=== PATIENT | male | born 1990 | race Caucasian/White ===

== ENCOUNTER 2024-08-01 10:27 | Emergency (ER) | payer OTHER, SELFPAY ==
[2024-08-01] VITALS (16 sets, daily range): BP systolic 115–141; BP diastolic 74–102; BMI 36.7
--- NOTE | 2024-08-01 10:48 | ED.GENMED ---
History of Present Illness
<JOSE Bustillos - Last Filed: 08/01/24 14:12>
General
Chief Complaint: Heart Rate Problem
Source: patient
Exam Limitations: none
Time Seen by Provider: 08/01/24 10:42
Nursing documentation reviewed up to this point in time: agreed with
History of Present Illness
History of Present Illness:
34-year-old male presents today for evaluation. Patient has a history of very intermittent A-fib. He had an episode at age 19 and believes he took Cardizem as needed and then his last episode was 9 years ago at age 25. This morning he got up
today and felt short of breath and felt like his heart was racing and irregular. He went to his family doctor's office found to be in A-fib and sent to the ER. He presently feels it very mildly.
He quit smoking 1 year ago he quit vaping 2 months ago. He denies any caffeine intake. He denies any onbv-gew-qdpftpe cough cold medicines.
Review of Systems
<JOSE Bustillos - Last Filed: 08/01/24 14:12>
Review of Systems
Allergies reviewed?: Yes
All Other Systems: ROS reviewed and negative except as documented in HPI and ROS
Constitutional: Reports no symptoms
Respiratory: Reports trouble breathing
Cardiac: Reports other (rapid heart rate sensation ); Denies chest pain, palpitations or syncope
ABD/GI: Reports no symptoms; Denies abdominal pain, nausea or vomiting
: Reports no symptoms
Musculoskeletal: Reports no symptoms
Skin: Reports no symptoms
Neurological: Reports no symptoms
Psychiatric: Reports no symptoms
Phy Exam
<JOSE Bustillos - Last Filed: 08/01/24 14:12>
General Physical Exam
General Presentation: no apparent distress
General age: appears stated age
General Skin: warm and dry
General Habitus: normal
General Mental: alert
General Hydration: appears well hydrated
Scores
<JOSE Bustillos - Last Filed: 08/01/24 14:12>
[id number] Score for Afib Stroke Risk
Age in Years (65=0, 65-74=1, >/=75=2): <65
Sex (Female=+1): Male
Congestive Heart Failure History (Yes=+1): No
Hypertension History (Yes=+1): No
Stroke/TIA/Thromboembolism History (Yes=+2): No
Vascular Disease History (Yes=+1): No
Diabetes Mellitus (Yes=+1): No
Score: 0
Anticoagulation Recommendations: Anticoagulation not indicated (as validated in nonvalvular afib). Consider anticoagulation irrespective of score in patients with HCM
<Joon Ballard MD - Last Filed: 08/01/24 14:58>
[id number] Score for Afib Stroke Risk
Score: 0
Anticoagulation Recommendations: Anticoagulation not indicated (as validated in nonvalvular afib). Consider anticoagulation irrespective of score in patients with HCM
Course
<JOSE Bustillos - Last Filed: 08/01/24 14:12>
Orders/Labs/Results
Orders:
Orders
08/01/24 10:28
EKG [Electrocardiogram (*1)] Urgent
Reason for Study: Atrial Fibrillation
EKG- Treatment ONCE
08/01/24 10:56
Complete Blood Count/With Diff Urgent
Comprehensive Metabolic Panel Urgent
TSH Reflex To Free T4 Urgent
08/01/24 10:58
Cardiac Monitoring- Treatment ONCE
IV Insert/Care/Rem.- Treatment PRN
0.9% Sodium Chloride 1000 ml [Nss] 1,000 ml IV BOLUS
08/01/24 11:46
Diltiazem HCl [Cardizem] 10 mg IV NOW STA
08/01/24 12:00
Diltiazem 125 mg/125 ml Nss [Cardizem] 125 mg in 125 ml IV PER PROTOCOL
Initial dose in mg/hr, then titrate:: 5
Titrate to keep:: Heart rate 80-100 bpm
Titrate by mg/hr:: 5 mg/hr
Frequency of titrations (minutes):: 15
Maximum dose in mg/hr:: 15
08/01/24 13:35
Propofol [Diprivan] 20 ml .ROUTE .STK-MED
08/01/24 13:54
Electrocardiogram (*1) Urgent
Reason for Study: Other
Other Reason for Exam: post cardioversion
08/01/24 13:55
EKG- Treatment ONCE
08/01/24 14:05
Rivaroxaban [Xarelto] 20 mg PO NOW STA
Abnormal Lab Results
08/01/24
10:56
Absolute Monos (auto) 0.7 H 10^3/uL
(0.1-0.6)
Calcium 10.5 H mg/dl
(8.4-10.2)
08/01/24 10:56
08/01/24 10:56
Vital Signs
Initial and Last Documented VS:
Initial Vital Signs
Temp Pulse Resp BP Pulse Ox
36.9 C 87 18 141/100 97
08/01/24 10:37 08/01/24 10:37 08/01/24 10:37 08/01/24 10:37 08/01/24 10:37
Last Documented Vital Signs
Temp Pulse Resp BP Pulse Ox
36.6 C 77 16 124/79 97
08/01/24 14:25 08/01/24 14:25 08/01/24 14:25 08/01/24 14:25 08/01/24 14:25
Hotel Valet Attendant consulted with Physician
Hotel Valet Attendant consulted with physician?: Yes
Name of Physician Consulted: Dr Ballard
<Joon Ballard MD - Last Filed: 08/01/24 14:58>
Orders/Labs/Results
Orders:
Orders
08/01/24 10:28
EKG [Electrocardiogram (*1)] Urgent
Reason for Study: Atrial Fibrillation
EKG- Treatment ONCE
08/01/24 10:56
Complete Blood Count/With Diff Urgent
Comprehensive Metabolic Panel Urgent
TSH Reflex To Free T4 Urgent
08/01/24 10:58
Cardiac Monitoring- Treatment ONCE
IV Insert/Care/Rem.- Treatment PRN
0.9% Sodium Chloride 1000 ml [Nss] 1,000 ml IV BOLUS
08/01/24 11:46
Diltiazem HCl [Cardizem] 10 mg IV NOW STA
08/01/24 12:00
Diltiazem 125 mg/125 ml Nss [Cardizem] 125 mg in 125 ml IV PER PROTOCOL
Initial dose in mg/hr, then titrate:: 5
Titrate to keep:: Heart rate 80-100 bpm
Titrate by mg/hr:: 5 mg/hr
Frequency of titrations (minutes):: 15
Maximum dose in mg/hr:: 15
08/01/24 13:35
Propofol [Diprivan] 20 ml .ROUTE .STK-MED
08/01/24 13:54
Electrocardiogram (*1) Urgent
Reason for Study: Other
Other Reason for Exam: post cardioversion
08/01/24 13:55
EKG- Treatment ONCE
08/01/24 14:05
Rivaroxaban [Xarelto] 20 mg PO NOW STA
Abnormal Lab Results
08/01/24
10:56
Absolute Monos (auto) 0.7 H 10^3/uL
(0.1-0.6)
Calcium 10.5 H mg/dl
(8.4-10.2)
08/01/24 10:56
08/01/24 10:56
Vital Signs
Initial and Last Documented VS:
Initial Vital Signs
Temp Pulse Resp BP Pulse Ox
36.9 C 87 18 141/100 97
08/01/24 10:37 08/01/24 10:37 08/01/24 10:37 08/01/24 10:37 08/01/24 10:37
Last Documented Vital Signs
Temp Pulse Resp BP Pulse Ox
36.6 C 77 16 124/79 97
08/01/24 14:25 08/01/24 14:25 08/01/24 14:25 08/01/24 14:25 08/01/24 14:25
Procedures
<JOSE Bustillos - Last Filed: 08/01/24 14:12>
Moderate Sedation
ASA Risk Score: Class I
Chart and allergies reviewed: Yes
Consent for anesthesia obtained: Yes
Time out completed (validating right patient & procedure): Yes
Moderate Sedation Start Time(when first medication is given): 13:47
History of difficult intubation: No
Airway free of obstruction: Yes
Patient has a gag reflex: Yes
Patient is able to open mouth: Yes
Patient has no dentures: Yes
Patient has no loose teeth: Yes
Medication administered by Provider during Moderate Sedation: IV Propofol (mg)
Total dose administered: 100
Time drug administered: 13:47
Moderate Sedation Procedure End Time: 13:59
<JOSE Bustillos - Last Filed: 08/01/24 14:12>
MDM/Problems Addressed
Differential Diagnosis Includes:
not limited to: atrial fibrillalation
MDM/Problems Addressed:
Patient is document is a 34-year-old male with several episodes of A-fib in his past 1 at age 19 and 1 9 years ago. He no longer follows with cardiology. He did see cardiology at [place] but wishes to come here instead. He felt fine yesterday
but this morning around 8 AM felt short of breath and felt like his heart was racing and irregular and he felt like this was A-fib. He did present in rapid A-fib in the 140s. He is in no acute distress. He denies any new rpud-exv-kbhelzu
medicines. He does not drink caffeine. Thyroid is currently pending labs unremarkable. Case reviewed with ED physician and DR Kingsley of cardiology will attempt to give Cardizem first and then reevaluate.
Patient was monitored here received Cardizem bolus and drip however continues to be in A-fib. He has no acute distress. As discussed with Dr. Kingsley ,since patient's onset of time was 8 AM stale for cardioversion.
Patient tolerated cardioversion well. As discussed with cardiology will DC on Xarelto and Toprol with close outpatient follow-up. As discussed with cardiology will DC on Xarelto 20 mg daily and Toprol XL 12.5 mg daily . office will reach out to pt
Chronic conditions affecting care:
afib
<JOSE Bustillos - Last Filed: 08/01/24 14:12>
*Pulse Oximetry
Patient hypoxic: no
*EKG
Interpreted by ED Provider?: Yes
Heart Rate: 164
Rate: tachycardiac
Rhythm: a-fib
Ischemia: non-specific ST changes
*Critical Care Note
Total Time (30-74mins, 75-104mins- exclusive of procedures): Not Applicable
<JOSE Bustillos - Last Filed: 08/01/24 14:12>
Patient Management
Discussion with other providers: Rug Cleaner (DR Kingsley cardiology )
ED Attending Note
<JOSE uBstillos - Last Filed: 08/01/24 14:12>
-
Portions of this chart may have been created with voice recognition software.� Occasional wrong word or��sound alike� substitutions may have occurred due to the inherent limitations of voice recognition software.
<Joon Ballard MD - Last Filed: 08/01/24 14:58>
ED Attending Note
Patient seen and examined by attending physician: Yes
ED Attending Note:
I have seen and evaluated the patient with a wayo-pe-vrgn encounter. I have spoken to the advance practicer provider and involved in the medical history, the physical exam, medical decision making.
Evaluation and management service: agree unless noted differently below.
Results interpretation: agree unless noted differently below.
Focused HPI: 34-year-old male with history of A-fib not on any medications presently presents to the ER for evaluation of palpitations consistent with prior A-fib symptoms. Started this morning when he woke up and have been constant all day. No
chest pain or dizziness. No shortness of breath. Was in his normal state of health last night. Previously seen by cardiology through [facility].
Physical exam: Awake alert not in distress. Marginally hypertensive, tachycardic with irregular regular rhythm. Lungs clear to auscultation bilaterally. No edema in extremities. Good pulses in all extremities.
Medical Decision Makin-year-old male presents in rapid A-fib. Confirmed on EKG. Labs unremarkable. Case discussed with cardiology by BABITA--initially trialed a dose of diltiazem with no real effect, ultimately recommended attempted ED
cardioversion. I had a long discussion with the patient about risks and benefits he was agreeable. He was cardioverted successfully as documented procedure note. Cardiology recommending starting on beta-patrick and Xarelto status post
cardioversion and patient can follow-up as an outpatient. Will monitor post cardioversion and if he remains asymptomatic and in sinus rhythm can be discharged.
Discharge Plan
Departure
Patient Disposition: Home (Routine Discharge)
Date of Disposition: 08/01/24
Time of Disposition: 14:10
Patient with high blood pressure during this ER visit?: Yes
Condition: Fair
Covid-19: Not Applicable
Discharge Problem:
Atrial fibrillation
Instructions: Atrial Fibrillation (DC), BLOOD PRESSURE
Prescriptions:
New
Xarelto 20 mg tablet
20 mg PO DAILY Qty: 30 0RF
metoprolol succinate [Toprol XL] 25 mg tablet extended release 24 hr
12.5 mg PO DAILY Qty: 30 0RF
Referrals:
Chris Laurent MD [Family Provider] -
Ashley Morales MD [Active] -
Jennifer Kingsley DO [Active] -
Activity Restrictions/Additional Instructions:
As discussed prescriptions were sent to your pharmacy take as directed. Prescriptions include Xarelto 20 mg daily to be taken in the evening with the evening meal. You were given the first dose here in the ER start daily tomorrow. This is a blood
thinner. In addition a medication called Toprol XL 12.5 mg daily.
Cardiology arranged an appointment for August [address] Morales at 11:20 am
Interventions
Interventions:
*Risk Screen - Suicide Last Done: 08/01/24 10:37
*General Assessment Last Done: 08/01/24 10:37
*Neglect/Abuse Screening Last Done: 08/01/24 10:37
ED- Fall Risk Assessment Last Done: 08/01/24 10:54
*ED COVID-19 Vaccine History Last Done: 08/01/24 14:10
ED- Cardiac Assessment Last Done: 08/01/24 10:54
ED- Pulmonary Assessment Last Done: 08/01/24 10:54
Discharge Date and Time
Print Language: YEMENI
[2024-08-01 11:05] LABS: % Basophils 0.6 % (0-2); % Immature Granulocytes 0.3 % (0-0.5); % Monocytes 8.5 % (1.7-9.3); % Neutrophils 62.6 % (42.2-75.2); Absolute Basophils 0.1 10^3/uL (0-0.2); Absolute Eosinophils 0.2 10^3/uL (0-0.7); Absolute Lymphocytes 2.1 10^3/uL (1.2-3.4); Absolute Monocytes 0.7 10^3/uL (0.1-0.6); Hematocrit 46.4 % (39.0-52.0); Hemoglobin 16.9 g/dL (13.0-18.0); Mean Corp Hgb Conc. 36.4 g/dL (33.0-37.0); Mean Corpuscular Hgb 29.9 pg (27.0-31.0); Mean Corpuscular Volume 82.1 fL (80.0-94.0); Nucleated Red Blood Cells % 0 % (-); Platelet Count 303 10^3/uL (130-400); Red Blood Cell Count 5.65 10^6/uL (4.70-6.10)
[2024-08-01] MEDS: NSS 1000 IV (11:05)
[2024-08-01 11:20] LABS: ALT (SGPT) 47 U/L (0-50); AST (SGOT) 33 U/L (17-59); Albumin 4.8 g/dl (3.5-5.0); Alkaline Phosphatase 82 U/L (38-126); Blood Urea Nitrogen 15 mg/dl (9-20); Calcium 10.5 mg/dl (8.4-10.2); Carbon Dioxide 27 mmol/L (22-30); Chloride 102 mmol/L (98-107); Glucose 98 mg/dl (70-99); Potassium 4.2 mmol/L (3.5-5.1); Sodium 141 mmol/L (135-145); Total Bilirubin 0.6 mg/dl (0.2-1.3); Total Protein 7.4 g/dl (6.3-8.2); eGFR > 60.00
[2024-08-01 11:50] LABS: TSH Reflex To Free T4 2.28 uIU/ml (0.47-4.68)
[2024-08-01] MEDS: CARDIZEM 10 MG IV (11:50)
[2024-08-01] MEDS: CARDIZEM 125 IV (11:50)
[2024-08-01] MEDS: XARELTO 20 MG PO (14:35)
== END 2024-08-01 15:21 | disposition home or self-care (01) ==
LOC: EMR 10:27
PROVIDERS: Nurse Practitioner; EMERGENCY PHYSICIAN Emergency Medicine; FAMILY PHYSICIAN Family Medicine
DX: I48.0 Paroxysmal atrial fibrillation (principal); Z87.891 Personal history of nicotine dependence; R03.0 Elevated blood-pressure reading, without diagnosis of hypertension
CPT/HCPCS: 92960; 99285; 96374; 96361 ×2; 99152; 80053; 84443; 85025; 93005

== ENCOUNTER → 2024-08-21 11:01 | Outpatient (REF) | payer OTHER, SELFPAY | LOC: RCS 11:01 | PROVIDERS: ATTENDING PHYSICIAN Internal Medicine Interventional Cardiology; FAMILY PHYSICIAN Family Medicine | DX: I48.91 Unspecified atrial fibrillation (principal) | CPT/HCPCS: 93306 ==

== ENCOUNTER 2025-10-22 05:48 | Day surgery (SDC) | payer OTHER, SELFPAY ==
[2025-10-22] VITALS (9 sets, daily range): BP systolic 120–154; BP diastolic 67–95; BMI 35.7
[2025-10-22] MEDS: LOVENOX 40 MG SC (06:25)
[2025-10-22] MEDS: TYLENOL 1000 MG PO (06:25)
[2025-10-22] MEDS: NORMOSOL-R/PLASMALYTE-A 1000 IV (06:25)
--- NOTE | 2025-10-22 08:17 | OR.RPT ---
Operative Report
Operative Report
Primary Surgeon: Philip
Assisting: JOSE Horn
Pre-op Diagnosis: Incarcerated umbilical hernia
Post-op Diagnosis: Same
Procedure Performed: Robot assisted laparoscopic repair incarcerated umbilical hernia (rTAPP)
Anesthesia Type: GETA + TAP block
Specimen / Cultures: None
Estimated Blood Loss: 5cc
Complications: None immediate
Operative Findings: 1.5cm defect, incarcerated fat; 13cm round bard soft mesh
DOS: 10/22/25
Indications:� This 35M developed an incarcerated umbilical hernia. Robot assisted laparoscopic repair was planned.
Description of procedure:� The patient was taken to the operating room and positioned into supine position. The patient�s abdomen was prepped and draped in standard sterile fashion. A time-out was completed verifying correct patient, procedure,
site, positioning, and implants and special equipment prior to beginning this procedure.� After induction and prior to prep, the hernia was reduced and the groins were inspected by palpation and no defects were palpated. A stab incision was made in
the left upper quadrant, a Veress needle was inserted and proper position was confirmed by aspiration and saline drop test. Following this, pneumoperitoneum was created with insufflation of carbon dioxide to 12 mmHg. Then a 8mm robotic trocar was
inserted at the left anterior axillary line. The laparoscope was inserted and no injuries were identified in the area. Under direct visualization, two 8mm trocars were placed a hand's breadth inferior to the initial trocar and a hand's breadth
inferior to the second trocar in succession.
Attention was turned to the defect. The peritoneum was incised several cm superior to the defect and a peritoneal flap was developed in transverse and caudad directions using blunt and sharp dissection and judicious electrocautery. The defect
measured as above. Incarcerated fat was reduced and the defect was closed with 0 PDS stratafix suture. Mesh was passed into the abdomen and centered on the defect, secured to the abdominal wall 2-0 vicryl suture. The flap was closed over the mesh
and secured with 2-0 monocryl stratafix suture. A transversus abdominis plane block was then performed under laparoscopic vision with marcaine/decadron. Several small flap rents were repaired with 2-0 vicryl suture.
After ensuring adequate hemostasis, the trocars were removed and the pneumoperitoneum allowed to escape. The trocar incisions were closed at the skin level using 4-0 monocryl and topical skin adhesive. All counts were correct. The patient tolerated
the procedure well and was taken to the postanesthesia care unit in stable condition.
The assistance of Justina GARCIA was required due to the complexity of the procedure. During the procedure she assisted with retraction, visualization, and closure of the wound.
[2025-10-22] MEDS: DILAUDID 0.25 MG IV (08:42)
== END 2025-10-22 10:44 | disposition home or self-care (01) ==
LOC: SDS 05:48
PROVIDERS: ATTENDING PHYSICIAN Surgery
DX: K42.0 Umbilical hernia with obstruction, without gangrene (principal)
CPT/HCPCS: 49592; C1781; J1335